=== PATIENT | female | born 1960 | race Caucasian/White ===

== ENCOUNTER → 2017-05-03 | Outpatient (CLI) | payer MEDICARE ==
[2017-05-03 11:53] LABS: ABSOLUTE BASOPHILS # (AUTO) 0.1 10^3/uL (0.0-0.2); ABSOLUTE EOSINOPHILS # (AUTO) 0.1 10^3/uL (0.0-0.6); ABSOLUTE LYMPHOCYTES (AUTO) 3.2 10^3/uL (0.5-4.7); ABSOLUTE MONOCYTES (AUTO) 0.8 10^3/uL (0.1-1.4); ABSOLUTE NEUT (AUTO) 7.1 10^3/uL (1.7-8.2); BASOPHILS % (AUTO) 0.5 % (0-2); HEMATOCRIT 49.9 % (36.0-47.0); HEMOGLOBIN 16.5 g/dL (12.0-15.5); HGB HCT DIFFERENCE -0.4; LYMPHOCYTES % (AUTO) 28.4 % (13-45); MEAN CORPUSCULAR HEMOGLOBIN 31.9 pg (27.0-33.4); MEAN CORPUSCULAR VOLUME 97 fl (80-97); MONOCYTES % (AUTO) 7.2 % (3-13); RED BLOOD COUNT 5.16 10^6/uL (3.72-5.28); RED CELL DISTRIBUTION WIDTH 14.2 % (11.5-14.0); SEGMENTED NEUTROPHILS % (AUTO) 62.9 % (42-78); WHITE BLOOD COUNT 11.2 10^3/uL (4.0-10.5)
[2017-05-03 12:25] LABS: ALANINE AMINOTRANSFERASE 52 U/L (9-52); ALKALINE PHOSPHATASE 71 U/L (38-126); ANION GAP 12 (5-19); ASPARTATE AMINO TRANSFERASE 36 U/L (14-36); BILIRUBIN,DIRECT 0.4 mg/dL (0.0-0.4); BILIRUBIN,TOTAL 0.6 mg/dL (0.2-1.3); BLOOD UREA NITROGEN 12 mg/dL (7-20); CALCIUM 10.4 mg/dL (8.4-10.2); CARBON DIOXIDE 30 mmol/L (22-30); CHLORIDE 101 mmol/L (98-107); CREATININE RESULT 1.05 mg/dL (0.52-1.25); GLUCOSE 99 mg/dL (75-110); SODIUM 143.2 mmol/L (137-145); TOTAL PROTEIN 8.4 g/dL (6.3-8.2)
--- NOTE | 2017-05-05 13:51 | EKG REPORT ---
SEVERITY:- NORMAL ECG - SINUS RHYTHM : Confirmed by: Aida Arias MD 05-May-2017 13:51:12
== END ==
LOC: OD 10:50
PROVIDERS: ATTEND Nurse Practitioner
DX: F31.60 Bipolar disorder, current episode mixed, unspecified (principal); I10 Essential (primary) hypertension
CPT/HCPCS: 36415; 80053; 85025; 93005; 93010

== ENCOUNTER → 2017-07-20 | Outpatient (CLI) | payer MEDICARE ==
--- NOTE | 2017-07-20 10:29 | RADIOLOGY REPORT (SQ) ---
EXAM DESCRIPTION: CT ABD/PELVIS NO ORAL OR IV COMPLETED DATE/TIME: 07/20/2017 10:16 am REASON FOR STUDY: GROSS HEMATURIA R31.0 GROSS HEMATURIA COMPARISON: CT from 05/29/2017 and KUB from 05/23/2015 TECHNIQUE: CT scan of the abdomen and pelvis performed without intravenous or oral contrast. Images reviewed with lung, soft tissue, and bone windows. Reconstructed coronal and sagittal MPR images revi ewed. All images stored on PACS. All CT scanners at this facility use dose modulation, iterative reconstruction, and/or weight based d osing when appropriate to reduce radiation dose to as low as reasonably achievable (ALARA). [facility]: Dose Right [facility]: CareDose [facility]: Dose Right [facility]: Teradose 4D [facility]: FamilyLeaf RADIATION DOSE: mGy. LIMITATIONS: None. FINDINGS: LOWER CHEST: No significant findings. No nodules or infiltrates. NON-CONTRASTED LIVER, SPLEEN, ADRENALS: Evaluation limited by lack of IV contrast. No identified sign ificant masses. PANCREAS: No masses. No peripancreatic inflammatory changes. GALLBLADDER: Surgically absent. RIGHT KIDNEY AND URETER: 12 mm simple cyst upper pole. No suspicious masses. Assessment limited by l ack of IV contrast. Several punctate nonobstructing calculi No hydronephrosis or hydroureter. LEFT KIDNEY AND URETER: There is moderate to severe left hydronephrosis with marked atrophy of the l eft kidney with minimal residual cortex compatible with chronic obstruction. There is a 10 mm calcul us within the distal left ureter and a 10 mm calculus within the left UPJ. AORTA AND RETROPERITONEUM : No aneurysm. No retroperitoneal masses or adenopathy. BOWEL AND PERITONEAL CAVITY: No obvious masses or inflammatory changes. No free fluid. APPENDIX: Not visualized. PELVIS, BLADDER, AND ABDOMINAL WALL:No abnormal masses. No free fluid. Bladder normal. BONES: No significant findings. OTHER: No other significant finding. IMPRESSION: MODERATE TO SEVERE LEFT HYDRONEPHROSIS WITH MARKED ATROPHY OF THE LEFT KIDNEY COMPATIBLE WITH CHRONIC OBSTRUCTION SECONDARY TO 10 MM CALCULUS WITHIN THE DISTAL URETER AND 10 MM CALCULUS WIT HIN THE LEFT UPJ. NONOBSTRUCTING RIGHT RENAL CALCULI. COMMENT: Quality ID # [id number]: Final reports with documentation of one or more dose reduction techniques (e.g., Automated exposure control, adjustment of the mA and/or kV according to patient size, use of iterative reconstruction technique) TECHNICAL DOCUMENTATION: JOB ID: [id number] [employer] [facility]- All Rights Reserved
== END ==
LOC: RAD 09:59
PROVIDERS: ATTEND Nurse Practitioner
DX: R31.0 Gross hematuria (principal)
CPT/HCPCS: 74176

== ENCOUNTER 2017-07-24 19:48 | Emergency (ER) | payer MEDICARE ==
[2017-07-24] MEDS ORDERED: MORPHINE SULFATE 10 MG/ML INJ IV ONE ×2 (20:34→22:31)
[2017-07-24] MEDS ORDERED: ONDANSETRON HCL INJ/PF 4 MG/2 ML SDV IV ONE (20:34)
[2017-07-24] MEDS ORDERED: KETOROLAC TROMETHAMINE INJ/PF 30 MG/1 ML SDV IV ONE (20:34)
--- NOTE | 2017-07-24 20:36 | ER Document Report ---
ED Medical Screen (RME) - General Chief Complaint: Possible Kidney Stone Stated Complaint: FLANK PAIN Time Seen by Provider: 07/24/17 20:34 Notes: Patient states that she was seen here several days ago and was diagnosed with a kidney stone on the left by CAT scan. She states she has had multiple kidney stones in the past. She has had to have lithotripsy and stents placed. She states that she is having nonstop pain and vomiting and is unable to pass the stone. She says there has been some blood in her urine and her urine is now dark. She states she tried 2 Vicodin at home for the pain but these made her vomit more so she has not taken anymore of the Vicodin. TRAVEL OUTSIDE OF THE [place] IN LAST 30 DAYS: No - Related Data Allergies/Adverse Reactions: No Known Allergies Allergy (Verified 07/24/17 20:29) Past Medical History Neurological Medical History: Reports: Hx Migraine Endocrine Medical History: Reports: Hx Hypothyroidism Renal/ Medical History: Reports: Hx Kidney Stones. Denies: Hx Peritoneal Dialysis Psychiatric Medical History: Reports: Hx Bipolar Disorder, Hx Depression Past Surgical History: Reports: Hx Appendectomy, Hx Cholecystectomy, Hx Hysterectomy, Hx Orthopedic Surgery - left knee - Immunizations Hx Diphtheria, Pertussis, Tetanus Vaccination: Yes Physical Exam - Vital signs Vitals: Temp Pulse Resp BP Pulse Ox 98.5 F 77 16 158/93 H 98 07/24/17 20:13 07/24/17 20:13 07/24/17 20:13 07/24/17 20:13 07/24/17 20:13 Course - Vital Signs Vital signs: Temp Pulse Resp BP Pulse Ox 98.5 F 77 16 158/93 H 98 07/24/17 20:13 07/24/17 20:13 07/24/17 20:13 07/24/17 20:13 07/24/17 20:13
[2017-07-24 21:14] LABS: ABSOLUTE BASOPHILS # (AUTO) 0.1 10^3/uL (0.0-0.2); ABSOLUTE EOSINOPHILS # (AUTO) 0.1 10^3/uL (0.0-0.6); ABSOLUTE LYMPHOCYTES (AUTO) 3.9 10^3/uL (0.5-4.7); ABSOLUTE MONOCYTES (AUTO) 1.2 10^3/uL (0.1-1.4); ABSOLUTE NEUT (AUTO) 9.4 10^3/uL (1.7-8.2); BASOPHILS % (AUTO) 0.8 % (0-2); EOSINOPHILS % (AUTO) 0.4 % (0-6); HEMATOCRIT 49.8 % (36.0-47.0); HEMOGLOBIN 17.3 g/dL (12.0-15.5); HGB HCT DIFFERENCE 2.1; LYMPHOCYTES % (AUTO) 26.9 % (13-45); MEAN CORPUSCULAR HEMOGLOBIN 32.9 pg (27.0-33.4); MEAN CORPUSCULAR HGB CONC 34.7 g/dL (32.0-36.0); MEAN CORPUSCULAR VOLUME 95 fl (80-97); MONOCYTES % (AUTO) 7.9 % (3-13); RED BLOOD COUNT 5.25 10^6/uL (3.72-5.28); RED CELL DISTRIBUTION WIDTH 13.4 % (11.5-14.0); WHITE BLOOD COUNT 14.7 10^3/uL (4.0-10.5)
[2017-07-24 21:30] LABS: ANION GAP 14 (5-19); BLOOD UREA NITROGEN 13 mg/dL (7-20); CALCIUM 10.9 mg/dL (8.4-10.2); CARBON DIOXIDE 28 mmol/L (22-30); CHLORIDE 102 mmol/L (98-107); CREATININE RESULT 0.74 mg/dL (0.52-1.25); GLUCOSE 93 mg/dL (75-110); SODIUM 143.6 mmol/L (137-145)
[2017-07-24 21:31] LABS: APPEARANCE,URINE SLIGHTLY-CLOUDY; BILIRUBIN,URINE NEGATIVE (NEGATIVE); GLUCOSE, URINE NEGATIVE (NEGATIVE); KETONES,URINE NEGATIVE (NEGATIVE); LEUKOCYTE ESTERASE,URINE TRACE (NEGATIVE); NITRITE,URINE NEGATIVE (NEGATIVE); PROTEIN,URINE 30 mg/dL (NEGATIVE); URINE SPECIFIC GRAVITY 1.021
[2017-07-24] MEDS ORDERED: NORMAL SALINE 1000 ML 1,000 ML IV ONE (22:31)
[2017-07-24] MEDS ORDERED: TAMSULOSIN HCL 0.4 MG CAP.SR.24H PO ONE (22:31)
[2017-07-24] MEDS ORDERED: CEFTRIAXONE 1 GM/D5W RTU 1 GM/50 ML RTUPB IV ONE (23:36)
[2017-07-25] MEDS ORDERED: MORPHINE SULFATE 10 MG/ML INJ IV ONE (00:45)
[2017-07-25] MEDS ORDERED: HYDROMORPHONE HCL INJ/PF 2 MG/ML AMPULE IV ONE ×3 (00:45→03:17)
[2017-07-25] MEDS ORDERED: ONDANSETRON HCL INJ/PF 4 MG/2 ML SDV IV ONE ×2 (00:45→03:30)
--- NOTE | 2017-07-25 00:51 | RADIOLOGY REPORT (SQ) ---
EXAM DESCRIPTION: U/S RETROPERITON (RENAL/AORTA) COMPLETED DATE/TIME: 07/25/2017 12:25 am REASON FOR STUDY: left flank pain, confirmed stone, continued pain COMPARISON: CT, 07/20/2017. TECHNIQUE: Dynamic and static grayscale images acquired of the kidneys and bladder and recorded on P ACS. Additional selected color Doppler and spectral images recorded. LIMITATIONS: None. FINDINGS: RIGHT KIDNEY: 10.3 cm right kidney contains a 1.4 cm hypoechoic likely benign cysts not de finitively characterized, as compared with prior CT, 07/20/2017. Known punctate right nephrolithiasis on prior CT not discerned. LEFT KIDNEY: 13.8 x 6.3 x 7.6 cm atrophic left kidney with cortical thickness measuring 1.1 cm. No current hydronephrosis discerned. Moderate left hydroureter and/or distended ureter likely with the left distal ureteral diameter measuring 16 mm consistent with prior CT, 07/20/2017. Patient had a 10 mm left distal ureteral stone on prior CT, 07/20/2017 not discerned sonographically. BLADDER: Right ureteral jet flow demonstrated. OTHER FINDINGS: No other significant finding. IMPRESSION: Severe atrophy of the left kidney. Moderate left ureteral dilation. On recent CT, 07/20, patient had small right nephrolithiasis and a 10 mm left distal ureteral stone which could not be discerned on today's sonogram probably due to limited penetration. TECHNICAL DOCUMENTATION: JOB ID: [id number]- All Rights Reserved
--- NOTE | 2017-07-25 01:43 | ER Document Report ---
ED GI/ - General Chief Complaint: Possible Kidney Stone Stated Complaint: FLANK PAIN Time Seen by Provider: 07/24/17 20:34 Mode of Arrival: Ambulatory Information source: Patient Notes: Patient is a 57-year-old female with a history of kidney stones who presents to the ER today for continued left flank pain after being diagnosed with a 10 mm kidney stone on the seventh of this month. Patient states that her primary care provider ordered a CAT scan and she was told that she needed to follow-up with urology outpatient, but she states that she has no transportation at all and has been unable to see urology and [place] which is an hour and a half away from here. Is seen she denies fevers or chills, just states that she has continued pain that worsened today with nausea and vomiting today as well. TRAVEL OUTSIDE OF THE [place] IN LAST 30 DAYS: No - Related Data Allergies/Adverse Reactions: No Known Allergies Allergy (Verified 07/24/17 20:29) Past Medical History - General Information source: Patient - Social History Smoking Status: Never Smoker Chew tobacco use (# tins/day): No Frequency of alcohol use: None Drug Abuse: None Family History: CAD - Father, Other - Mother with bipolar disorder Patient has suicidal ideation: No Patient has homicidal ideation: No Neurological Medical History: Reports: Hx Migraine Endocrine Medical History: Reports: Hx Hypothyroidism Renal/ Medical History: Reports: Hx Kidney Stones. Denies: Hx Peritoneal Dialysis Psychiatric Medical History: Reports: Hx Bipolar Disorder, Hx Depression Past Surgical History: Reports: Hx Appendectomy, Hx Cholecystectomy, Hx Hysterectomy, Hx Orthopedic Surgery - left knee - Immunizations Hx Diphtheria, Pertussis, Tetanus Vaccination: Yes Review of Systems - Review of Systems Constitutional: No symptoms reported EENT: No symptoms reported Cardiovascular: No symptoms reported Respiratory: No symptoms reported Gastrointestinal: No symptoms reported Genitourinary: See HPI Female Genitourinary: No symptoms reported Musculoskeletal: No symptoms reported Skin: No symptoms reported Hematologic/Lymphatic: No symptoms reported Neurological/Psychological: No symptoms reported Physical Exam - Vital signs Vitals: Temp Pulse Resp BP Pulse Ox 98.5 F 77 16 158/93 H 98 07/24/17 20:13 07/24/17 20:13 07/24/17 20:13 07/24/17 20:13 07/24/17 20:13 - Notes Notes: PHYSICAL EXAMINATION: GENERAL: Uncomfortable, pacing around room, holding left flank, but in no acute distress. HEAD: Atraumatic, normocephalic. EYES: Pupils equal round and reactive to light, extraocular movements intact, sclera anicteric, conjunctiva are normal. NECK: Normal range of motion, supple without lymphadenopathy LUNGS: CTAB and equal. No wheezes rales or rhonchi. HEART: Regular rate and rhythm without murmurs ABDOMEN: Soft, no tenderness. No guarding, no rebound BACK: no vertebral tenderness, normal ROM GI/: left CVA tenderness EXTREMITIES: Normal range of motion, no pitting edema. No cyanosis. NEUROLOGICAL: Cranial nerves grossly intact. Normal sensory/motor exams. PSYCH: Normal mood, normal affect. SKIN: Warm, Dry, normal turgor, no rashes or lesions noted Course - Re-evaluation Re-evalutation: 07/25/17 01:44 Pt has a WBC of 14 and leukocytes and blood on urinalysis, ultrasound is very limited today with a lot of bowel gas but shows a dilated ureter on the left of 16mm and hydronephrosis. It says severe left kidney atrophy, but my attending looked at ultrasound and states that that can't really be seen and doesn't make sense clinically. Dr. Giraldo, urologist at [facility] agrees to see pt if we transfer here ED to ED at this time. Her pain is still not really under control with toradol, morphine and dilaudid now. nausea is under control with zofran. She has gotten fluids and rocephin here through her IV. 07/25/17 03:18 transport here for patient, she is stable but wants some pain medication for the trip. - Vital Signs Vital signs: Temp Pulse Resp BP Pulse Ox 98.5 F 77 18 168/95 H 97 07/24/17 20:13 07/24/17 20:13 07/25/17 02:01 07/25/17 03:01 07/25/17 03:01 - Laboratory Result Diagrams: 07/24/17 21:00 07/24/17 21:00 Laboratory results interpreted by me: 07/24/17 07/24/17 07/24/17 21:00 21:00 21:00 WBC 14.7 H Hgb 17.3 H Hct 49.8 H Absolute Neutrophils 9.4 H Calcium 10.9 H Urine Protein 30 H Urine Blood SMALL H Urine Urobilinogen 2.0 H Ur Leukocyte Esterase TRACE H Discharge - Discharge Clinical Impression: Ureteral stone with hydronephrosis Leukocytosis Qualifiers: Leukocytosis type: unspecified Qualified Code(s): D72.829 - Elevated white blood cell count, unspecified Condition: Stable Disposition: [facility] Referrals: MUKESH FOFANA NP-C [Primary Care Provider] - Follow up as needed
[2017-07-25 03:17] VITALS: BP 168/95
[2017-07-25] MEDS ORDERED: ONDANSETRON HCL INJ/PF 4 MG/2 ML SDV ONE (03:30)
== END 2017-07-25 03:37 | disposition short-term general hospital (02) ==
LOC: ER 19:48
DX: N13.2 Hydronephrosis with renal and ureteral calculous obstruction (principal); D72.829 Elevated white blood cell count, unspecified; R10.9 Unspecified abdominal pain
CPT/HCPCS: 99284; 36415; 85025; 80048; 81001; 76770; J1885; J2270; J1170; A9270; J2405 ×2; J7030; J0696

== ENCOUNTER 2018-03-04 19:40 | Emergency (ER) | payer MEDICARE ==
[2018-03-04 19:47] VITALS: BP 106/67
--- NOTE | 2018-03-04 20:14 | RADIOLOGY REPORT (SQ) ---
EXAM DESCRIPTION: ANKLE LEFT COMPLETE COMPLETED DATE/TIME: 03/04/2018 8:04 pm REASON FOR STUDY: pain s/p injury COMPARISON: None. NUMBER OF VIEWS: Three views. TECHNIQUE: AP, lateral, and oblique radiographic images acquired of the left ankle. LIMITATIONS: None. FINDINGS: MINERALIZATION: Normal. BONES: No dislocation. Nondisplaced fracture of the inferior tip of the lateral malleolus. No othe r fracture identified. JOINTS: No effusions. SOFT TISSUES: Lateral soft tissue swelling. No foreign body. OTHER: No other significant finding. IMPRESSION: Nondisplaced fracture of the inferior tip of the lateral malleolus. TECHNICAL DOCUMENTATION: JOB ID: [id number] [place]-72 2010 [employer]- All Rights Reserved Reading location - IP/workstation name: [email or web address]
--- NOTE | 2018-03-04 20:16 | RADIOLOGY REPORT (SQ) ---
EXAM DESCRIPTION: FOOT LEFT COMPLETE COMPLETED DATE/TIME: 03/04/2018 8:04 pm REASON FOR STUDY: pain s/p injury COMPARISON: None. NUMBER OF VIEWS: Three views. TECHNIQUE: AP, lateral and oblique radiographic images acquired of the left foot. LIMITATIONS: None. FINDINGS: MINERALIZATION: Normal. BONES: No dislocation. Irregularity at the base of the distal phalanx of the left great toe seen bes t on the oblique projection, correlate to exclude fracture. . JOINTS: No effusions. SOFT TISSUES: No soft tissue swelling. No foreign body. OTHER: No other significant finding. IMPRESSION: Irregularity at the base of the distal phalanx of the left great toe seen best on the ob lique projection, correlate to exclude fracture. TECHNICAL DOCUMENTATION: JOB ID: [id number] [place]-72 2010 [employer]- All Rights Reserved Reading location - IP/workstation name: [email or web address]
[2018-03-04] MEDS ORDERED: IBUPROFEN 800 MG TABLET PO ONE (20:32)
[2018-03-04] MEDS ORDERED: HYDROCODONE/ACETAMINOPHEN 5-325 MG (6 TAB/ER DISP) PO PRN (20:33)
--- NOTE | 2018-03-04 20:38 | ER Document Report ---
ED General - General Chief Complaint: Ankle Injury Stated Complaint: LEFT ANKLE INJURY Time Seen by Provider: 03/04/18 20:16 Mode of Arrival: Ambulatory Information source: Patient TRAVEL OUTSIDE OF THE [place] IN LAST 30 DAYS: No - HPI Notes: Patient is a 57-year-old female smoker presents to the emergency department with report that she accidentally tripped 4 hours ago injuring her left great toe and left lateral ankle. She denies any knee pain or hip pain or back pain. The patient reports no numbness or paresthesia or head injury or neck pain. No history of kidney trouble or diabetes. - Related Data Allergies/Adverse Reactions: No Known Allergies Allergy (Verified 07/24/17 20:29) Past Medical History - General Information source: Patient - Social History Smoking Status: Current Every Day Smoker Chew tobacco use (# tins/day): No Frequency of alcohol use: None Drug Abuse: None Family History: CAD - Father, Other - Mother with bipolar disorder Patient has suicidal ideation: No Patient has homicidal ideation: No Neurological Medical History: Reports: Hx Migraine Endocrine Medical History: Reports: Hx Hypothyroidism Renal/ Medical History: Reports: Hx Kidney Stones. Denies: Hx Peritoneal Dialysis Psychiatric Medical History: Reports: Hx Bipolar Disorder, Hx Depression Past Surgical History: Reports: Hx Appendectomy, Hx Cholecystectomy, Hx Hysterectomy, Hx Orthopedic Surgery - left knee - Immunizations Hx Diphtheria, Pertussis, Tetanus Vaccination: Yes Review of Systems - Review of Systems Notes: REVIEW OF SYSTEMS: CONSTITUTIONAL : Denies fever, chills, or sweats. Denies recent illness. EENT: Denies eye, ear, throat, or mouth pain or symptoms. Denies nasal or sinus congestion CARDIOVASCULAR: Denies chest pain. Denies palpitations or racing or irregular heart beat. Denies ankle edema. RESPIRATORY: Denies cough, cold, or chest congestion. Denies shortness of breath, difficulty breathing, or wheezing. GASTROINTESTINAL: Denies abdominal pain or distention. Denies nausea, vomiting , or diarrhea. Denies blood in vomitus, stools, or per rectum. Denies black, tarry stools. Denies constipation. GENITOURINARY: Denies difficulty urinating FEMALE GENITOURINARY: Denies vaginal bleeding, heavy or abnormal periods, irregular periods. Denies vaginal discharge or odor. MUSCULOSKELETAL: Denies back or neck pain or stiffness. SKIN: Denies rash, lesions or sores. HEMATOLOGIC : Denies easy bruising or bleeding. LYMPHATIC: Denies swollen, enlarged glands. NEUROLOGICAL: Denies confusion or altered mental status. Denies passing out or loss of consciousness. Denies dizziness or lightheadedness. Denies headache. Denies weakness or paralysis or loss of use of either side. Denies problems with gait or speech. Denies sensory loss, numbness, or tingling. Denies seizures. PSYCHIATRIC: Denies anxiety or stress. Denies depression, suicidal ideation, or homicidal ideation. ALL OTHER SYSTEMS REVIEWED AND NEGATIVE. Dictation was performed using [employer] voice recognition software Physical Exam - Vital signs Vitals: Temp Pulse Resp BP Pulse Ox 99.8 F 99 22 H 106/67 94 03/04/18 19:46 03/04/18 19:46 03/04/18 19:46 03/04/18 19:46 03/04/18 19:46 - Notes Notes: General no obvious distress: HEENT atraumatic normocephalic conjunctiva clear Neck supple nontender Back nontender examination left lower extremity shows nonfocal hip and knee exam. No midline back pain. Patient has pain and swelling along the lateral malleolus of the ankle. No gross bony deformity or crepitance. Good alignment. Patient also has pain along the medial distal aspect of the great toe. No toenail injury. Good distal pulses and capillary refill. No proximal erythema or adenopathy. Course - Re-evaluation Re-evalutation: 03/04/18 20:53 Patient had a cast shoe and a left ankle air splint placed. Patient was given medication for pain. Patient will either follow-up with podiatry or orthopedics. 03/04/18 20:53 No neurovascular compromise or other acute injury. - Vital Signs Vital signs: Temp Pulse Resp BP Pulse Ox 99.8 F 99 22 H 106/67 94 03/04/18 19:46 03/04/18 19:46 03/04/18 19:46 03/04/18 19:46 03/04/18 19:46 Discharge - Discharge Clinical Impression: Toe fracture, left Qualifiers: Encounter type: initial encounter Toe: great toe Fracture type: closed Phalanx : distal Fracture alignment: nondisplaced Qualified Code(s): S92.425A - Nondisplaced fracture of distal phalanx of left great toe, initial encounter for closed fracture Ankle fracture, lateral malleolus, closed Qualifiers: Encounter type: initial encounter Fracture alignment: nondisplaced Laterality: left Qualified Code(s): S82.65XA - Nondisplaced fracture of lateral malleolus of left fibula, initial encounter for closed fracture Condition: Stable Disposition: HOME, SELF-CARE Instructions: Ankle Stirrup Splint ([facility]), Use of Crutches ([facility]), Oral Narcotic Medication ([facility]), Fractured Toe ([facility]) Additional Instructions: Elevate, ice. Take ibuprofen as directed for pain, and in [place] if pain is not relieved. Prescriptions: Hydrocodone/Acetaminophen [[place] 5-325 Tablet] 1 each PO Q4HP PRN #20 tablet PRN Reason: Ibuprofen [Motrin 800 mg Tablet] 800 mg PO Q8H PRN #30 tab PRN Reason: Referrals: SANTOSH HUTCHINS DPM [ACTIVE STAFF] - Follow up in 3-5 days (Have x-rays done and is) JASMINE MARTIN MD [ACTIVE STAFF] - Follow up in 3-5 days
== END 2018-03-04 21:09 | disposition home or self-care (01) ==
LOC: ER 19:40
DX: S92.425A Nondisplaced fracture of distal phalanx of left great toe, initial encounter for closed fracture (principal); S82.65XA Nondisplaced fracture of lateral malleolus of left fibula, initial encounter for closed fracture; W01.0XXA Fall on same level from slipping, tripping and stumbling without subsequent striking against object, initial encounter; F17.200 Nicotine dependence, unspecified, uncomplicated; E03.9 Hypothyroidism, unspecified; Z87.442 Personal history of urinary calculi; Z90.49 Acquired absence of other specified parts of digestive tract; Z90.710 Acquired absence of both cervix and uterus
CPT/HCPCS: 99283; 73610; 73630; L4350; A9270 ×2